=== PATIENT | female | born 1940 | race Caucasian/White ===

== ENCOUNTER → 2023-07-12 09:19 | Outpatient (REF) | payer MEDICARE, OTHER, SELFPAY ==
[2023-07-12 12:36] LABS: % Basophils 1.2 % (0-2); % Eosinophils 3.6 % (0-6); % Immature Granulocytes 0.2 % (0-0.5); % Lymphocytes 43.4 % (20.5-51.1); % Monocytes 5.8 % (1.7-9.3); % Neutrophils 45.8 % (42.2-75.2); Absolute Basophils 0.1 10^3/uL (0-0.2); Absolute Eosinophils 0.3 10^3/uL (0-0.7); Absolute Lymphocytes 3.5 10^3/uL (1.2-3.4); Absolute Monocytes 0.5 10^3/uL (0.1-0.6); Absolute Neutrophils 3.7 10^3/uL (1.4-6.5); Hematocrit 38.3 % (37.0-47.0); Hemoglobin 11.5 g/dL (12.0-16.0); Mean Corpuscular Hgb 24.9 pg (27.0-31.0); Mean Corpuscular Volume 82.9 fL (81.0-99.0); Nucleated Red Blood Cells % 0 %; Platelet Count 360 10^3/uL (130-400); Red Blood Cell Count 4.62 10^6/uL (4.20-5.40); Red Cell Dist. Width 17.1 % (11.5-14.5); White Blood Cell Count 8.1 10^3/uL (4.8-10.8)
[2023-07-12 12:48] LABS: Iron 57 ug/dl (37-170)
[2023-07-12 12:58] LABS: Percent Saturation 10 % (20-50); Total Iron Binding Capacity 547 ug/dl (265-497)
[2023-07-12 14:07] LABS: Ferritin 7.3 ng/ml (11.1-264.0)
== END ==
LOC: HWLAB 09:19
PROVIDERS: ATTENDING PHYSICIAN Nurse Practitioner Family
DX: D50.9 Iron deficiency anemia, unspecified (principal); E03.9 Hypothyroidism, unspecified; D64.9 Anemia, unspecified
CPT/HCPCS: 36415; 82728; 83540; 83550; 84443; 85025

== ENCOUNTER → 2023-12-25 07:09 | Outpatient (REF) | payer MEDICARE, OTHER, SELFPAY | LOC: PAVMRI 07:09 | PROVIDERS: ATTENDING PHYSICIAN Physician Assistant; FAMILY PHYSICIAN Internal Medicine Geriatric Medicine | DX: M54.16 Radiculopathy, lumbar region (principal) | CPT/HCPCS: 72148 ==